=== PATIENT | female | born 1970 | race Caucasian/White ===

== ENCOUNTER 2017-03-05 13:47 | Emergency (ER) | payer BC ==
[~2017-03-05] VITALS: Ht 167.6 cm; Wt 86.7 kg
[~2017-03-05 13:47] MED LIST: AVELOX400 MG PO; BACTRIM,SEPT1 TABLET PO; FLEXERIL10 MG PO; LIDODERM 5% P1 PATCH TD; Levaquin PO; NAPROXEN500 MG PO; NOHOMEMEDS; NORCO 5/3251 TABLET PO; PREDNISONE20 MG PO; Percocet 5/325,Endoc PO; Slow Fe PO; THERAGRAN1 TABLET PO
[2017-03-05 16:44] LABS: HEMATOCRIT 35.4 % (36.0-46.0); MCH 32.2 PG (29.0-34.0); MCHC 33.3 G/DL (30.0-36.0); MCV 96.5 FL (83-99); MEAN PLAT.VOLUME 10.8 uM^3 (9.5-12.4); PLATELET COUNT 264 K/uL (156-360); RBC DIS.WIDTH-CV 12.9 % (11.8-14.6); RBC DIS.WIDTH-SD 46.2 % (39-53); RED BLOOD COUNT 3.67 M/uL (3.80-5.20); WHITE BLOOD COUNT 17.3 K/uL (4.1-10.2)
[2017-03-05 16:48] LABS: ADD MIUA? YES; BILIRUBIN NEGATIVE; BLOOD MODERATE; COLOR STRAW ((YELLOW)); GLUCOSE (STRIP) NEGATIVE; KETONES NEGATIVE; LEUKOCYTES NEGATIVE; NITRITE NEGATIVE; PROTEIN (STRIP) NEGATIVE; SPECIFIC GRAVITY 1.004 (1.000-1.030); UROBILINOGEN 0.2 MG/DL (0.2-1.0)
[2017-03-05 16:55] LABS: CHLORIDE 105 mEq/L (99-109); POTASSIUM 3.9 mEq/L (3.7-5.4); SODIUM 138 mEq/L (136-147)
[2017-03-05 16:57] LABS: GLUCOSE 97 mg/dL (70-99)
[2017-03-05 16:58] LABS: ANION GAP 9 MEQ/L (2-14)
[2017-03-05 16:59] LABS: BACTERIA RARE /HPF; EPITHELIAL CELLS RARE /HPF; HYALINE CASTS 0-5 /LPF; MUCUS TRACE /LPF; RED BLOOD CELLS 0-5 /HPF (0-5); WHITE BLOOD CELLS 0-5 /HPF (0-5)
[2017-03-05 17:01] LABS: GFR ESTIMATE (CALCULATED) > 59 mL/min/
[2017-03-05 17:02] LABS: UREA NITROGEN (BUN) 6 mg/dL (9-23)
[2017-03-05] MEDS ORDERED: ZOFRAN ODT4 MG PO (17:52)
[2017-03-05] MEDS ORDERED: CLEOCIN300 MG PO (17:52)
[2017-03-05] MEDS ORDERED: TYLENOL WITH C1 EACH PO (17:52)
[2017-03-05 18:10] VITALS: BP 124/79
== END 2017-03-05 18:14 | disposition home or self-care (01) ==
LOC: EME 13:47
PROVIDERS: Nurse Practitioner Family
DX: L03.116 Cellulitis of left lower limb (principal); L02.416 Cutaneous abscess of left lower limb; F17.200 Nicotine dependence, unspecified, uncomplicated
CPT/HCPCS: 76882; 80048; 81003; 85027; 99281; 99284; J2405; J7030

== ENCOUNTER 2017-03-07 09:24 | Emergency (ER) | payer BC ==
[~2017-03-07] VITALS: Ht 167.6 cm; Wt 86.9 kg
[~2017-03-07 09:24] MED LIST changes: +CLEOCIN300 MG PO; +TYLENOL WITH C1 EACH PO; +ZOFRAN ODT4 MG PO
[2017-03-07 12:12] LABS: HEMATOCRIT 33.8 % (36.0-46.0); MCH 32.1 PG (29.0-34.0); MCHC 33.1 G/DL (30.0-36.0); MCV 96.8 FL (83-99); MEAN PLAT.VOLUME 10.9 uM^3 (9.5-12.4); PLATELET COUNT 321 K/uL (156-360); RBC DIS.WIDTH-CV 12.9 % (11.8-14.6); RBC DIS.WIDTH-SD 46.6 % (39-53); RED BLOOD COUNT 3.49 M/uL (3.80-5.20); WHITE BLOOD COUNT 13.9 K/uL (4.1-10.2)
[2017-03-07 12:25] LABS: CHLORIDE 103 mEq/L (99-109); POTASSIUM 3.8 mEq/L (3.7-5.4); SODIUM 138 mEq/L (136-147)
[2017-03-07 12:27] LABS: GLUCOSE 97 mg/dL (70-99)
[2017-03-07 12:28] LABS: ANION GAP 10 MEQ/L (2-14)
[2017-03-07 12:31] LABS: GFR ESTIMATE (CALCULATED) > 59 mL/min/
[2017-03-07 12:32] LABS: UREA NITROGEN (BUN) 6 mg/dL (9-23)
[2017-03-07] MEDS ORDERED: NORCO 5/3251 TABLET PO (14:45)
[2017-03-07 15:10] VITALS: BP 118/74
== END 2017-03-07 15:20 | disposition home or self-care (01) ==
LOC: EME 09:24
PROVIDERS: Physician Assistant
DX: L02.31 Cutaneous abscess of buttock (principal); R11.0 Nausea; F17.200 Nicotine dependence, unspecified, uncomplicated
CPT/HCPCS: 76882; 80048; 83605; 85027; 99281; 99285; J2270; J7030; J7050

== ENCOUNTER 2017-03-07 23:42 | Emergency (ER) | payer BC ==
[~2017-03-07] VITALS: Ht 167.6 cm; Wt 88.5 kg
[2017-03-08 00:16] VITALS: BP 117/94
== END 2017-03-08 00:16 | disposition home or self-care (01) ==
LOC: EME 23:42
DX: L02.31 Cutaneous abscess of buttock (principal); L03.317 Cellulitis of buttock; F17.200 Nicotine dependence, unspecified, uncomplicated
CPT/HCPCS: 87070; 87075; 87077; 87147; 87186; 87205

== ENCOUNTER 2017-03-12 11:21 | Inpatient (IN) | payer BC ==
[~2017-03-12] VITALS: Ht 167.6 cm; Wt 88.6 kg
[2017-03-12 12:26] LABS: EOSINOPHIL (%) 0.1 % (0-5); HEMATOCRIT 34.1 % (36.0-46.0); IMMATURE GRANULOCYTE (%) 1.2 % (0.0-0.7); IMMATURE GRANULOCYTE COUNT 0.2 K/uL; INSTRUMENT ABS NEUTROPHIL CT 13.9 K/uL; LYMPHOCYTE COUNT 0.3 K/uL (1.0-2.8); MCH 31.6 PG (29.0-34.0); MCHC 33.1 G/DL (30.0-36.0); MCV 95.3 FL (83-99); MONOCYTE (%) 1.2 % (3-12); MONOCYTE COUNT 0.2 K/uL (0-0.8); NEUTROPHIL (%) 95.4 % (45-76); NEUTROPHIL COUNT 13.9 K/uL (1.8-6.4); PLATELET COUNT 415 K/uL (156-360); RBC DIS.WIDTH-CV 13.2 % (11.8-14.6); RBC DIS.WIDTH-SD 46.3 % (39-53); RED BLOOD COUNT 3.58 M/uL (3.80-5.20); WHITE BLOOD COUNT 14.6 K/uL (4.1-10.2)
[2017-03-12 12:35] LABS: CHLORIDE 102 mEq/L (99-109); POTASSIUM 3.5 mEq/L (3.7-5.4); SODIUM 134 mEq/L (136-147)
[2017-03-12 12:37] LABS: GLUCOSE 105 mg/dL (70-99)
[2017-03-12 12:38] LABS: ANION GAP 12 MEQ/L (2-14)
[2017-03-12 12:41] LABS: GFR ESTIMATE (CALCULATED) > 59 mL/min/
[2017-03-12 12:42] LABS: UREA NITROGEN (BUN) 5 mg/dL (9-23)
[2017-03-12 13:19] LABS: ADD MIUA? NO; BILIRUBIN NEGATIVE; BLOOD NEGATIVE; COLOR STRAW ((YELLOW)); GLUCOSE (STRIP) NEGATIVE; KETONES NEGATIVE; LEUKOCYTES NEGATIVE; NITRITE NEGATIVE; PROTEIN (STRIP) NEGATIVE; SPECIFIC GRAVITY 1.004 (1.000-1.030); UCUL ADDED? NO; UROBILINOGEN 0.2 MG/DL (0.2-1.0)
[2017-03-12 14:02] LABS: AMPHETAMINE NEGATIVE (500 ng/mL); BARBITURATES NEGATIVE (200 ng/mL); BENZODIAZEPINES NEGATIVE (150 ng/mL); COCAINE NEGATIVE (150 ng/mL); INTERNAL CONTROLS VALID? YES; METHADONE NEGATIVE (200 ng/mL); METHAMPHETAMINE NEGATIVE (500 ng/mL); OPIATES (MORPHINE) NEGATIVE (100 ng/mL); OXYCODONE NEGATIVE (100 ng/mL); PHENCYCLIDINE NEGATIVE (25 ng/mL); PROPOXYPHENE NEGATIVE (300 ng/mL); THC CANNABINOIDS NEGATIVE (50 ng/mL); TRICYCLIC ANTIDEPRESSANTS NEGATIVE (300 ng/mL)
[2017-03-12 15:53] VITALS: BP 111/82
[2017-03-12 19:29] VITALS: BP 113/56
[2017-03-12 23:38] VITALS: BP 101/54
[2017-03-13 03:39] VITALS: BP 101/55
[2017-03-13 06:53] LABS: MCH 31.7 PG (29.0-34.0); MCHC 31.9 G/DL (30.0-36.0); MEAN PLAT.VOLUME 10.4 uM^3 (9.5-12.4); PLATELET COUNT 292 K/uL (156-360); RBC DIS.WIDTH-CV 13.7 % (11.8-14.6); RBC DIS.WIDTH-SD 49.8 % (39-53); RED BLOOD COUNT 3.12 M/uL (3.80-5.20); WHITE BLOOD COUNT 6.7 K/uL (4.1-10.2)
[2017-03-13 06:56] LABS: MCV 99.4 FL (83-99)
[2017-03-13 07:10] LABS: ANION GAP 5 MEQ/L (2-14); CHLORIDE 107 MEQ/L (99-109); GFR ESTIMATE (CALCULATED) > 59 mL/min/; GLUCOSE 94 mg/dL (70-99); POTASSIUM 3.6 MEQ/L (3.7-5.4); SAMPLE HEMOLYSIS CHECK 0; SAMPLE ICTERIC CHECK 0; SAMPLE LIPEMIA CHECK 0; SODIUM 139 MEQ/L (136-147); UREA NITROGEN (BUN) 7 mg/dL (9-23)
[2017-03-13 08:20] VITALS: BP 97/50
[2017-03-13] MEDS ORDERED: LEVAQUIN750 MG PO (11:16)
[2017-03-13 13:01] LABS: ALKALINE PHOSPHATASE 161 IU/L (3-129); DIRECT BILIRUBIN 0.1 mg/dL (0.0-0.3); TOTAL BILIRUBIN 0.2 MG/DL (0.0-1.0)
== END 2017-03-13 17:30 | disposition home or self-care (01) | DRG 872 ==
LOC: RME 11:21 → EME 11:21 → 2EAST 14:02 → EDOF 14:02 → ENRESERV 14:03 → 2EAST 15:49
PROVIDERS: Internal Medicine; Physician Assistant; Physician Assistant Medical
DX: A41.01 Sepsis due to Methicillin susceptible Staphylococcus aureus (principal); L02.215 Cutaneous abscess of perineum; L03.116 Cellulitis of left lower limb; L02.212 Cutaneous abscess of back [any part, except buttock and flank]; E86.0 Dehydration; E87.6 Hypokalemia; E87.1 Hypo-osmolality and hyponatremia; D64.9 Anemia, unspecified; E86.1 Hypovolemia; F17.200 Nicotine dependence, unspecified, uncomplicated; B95.61 Methicillin susceptible Staphylococcus aureus infection as the cause of diseases classified elsewhere
CPT/HCPCS: 71010; 80048; 80076; 81003; 83605; 85025; 85027; 87040; 87502; 99281; 99285; J1200; J1650; J1956; J2405; J7030